=== PATIENT | female | born 1995 | race Caucasian/White ===

== ENCOUNTER 2018-07-21 17:55 | Emergency (ER) | payer BC, OTHER ==
[2018-07-21 18:14] VITALS: BP 117/67
--- NOTE | 2018-07-21 18:36 | UC ---
Shoulder Pain HPI - HPI Summary HPI Summary: Slipped yesterday at work. Fell backwards onto her butt and on her hands extended behind her. Left arm feels weak with some left hand numbness. Pain worse with use. - History of Current Complaint Chief Complaint: UCUpperExtremity Stated Complaint: BACK PAIN Time Seen by Provider: 07/21/18 18:17 Hx Obtained From: Patient ?: No - 3 months post Onset/Duration: Sudden Onset - falling yesterdaty, Lasting Days - 1, Worse Since - awakening with pain this morning. Timing: Constant Severity Initially: Mild Severity Currently: Severe Location Of Pain: Is Discrete @ - left shoulder, anterior and posterior, with neck pain and pain radiating down the left arm. Pain Intensity: 7 Character: Sharp, Aching Aggravating Factor(s): Movement Alleviating Factor(s): Rest Associated Signs And Symptoms: Positive: Weakness Related History: Occupational Injury - slipped outside at work., Dominant Hand Right - Allergies/Home Medications Allergies/Adverse Reactions: Allergies Allergy/AdvReac Type Severity Reaction Status Date / Time No Known Allergies Allergy Verified 07/21/18 18:12 Home Medications: Home Medications Acetaminophen [Tylenol] 650 mg PO ONCE 07/21/18 [History Confirmed 07/21/18] PMH/Surg Hx/FS Hx/Imm Hx Previously Healthy: Yes - Surgical History Surgical History: None - Family History Known Family History: Negative: Cardiac Disease, Diabetes - Social History Occupation: Employed Full-time Lives: With Family Alcohol Use: None Substance Use Type: None Smoking Status (MU): Never Smoked Tobacco Review of Systems All Other Systems Reviewed And Are Negative: Yes Musculoskeletal: Positive: Arthralgia - left shoulder and neck. Is Patient Immunocompromised?: No Physical Exam Triage Information Reviewed: Yes Appearance: Well-Appearing, Well-Nourished, Pain Distress - mild Vital Signs: Initial Vital Signs Temp 97.5 F 07/21/18 18:10 Pulse 83 07/21/18 18:10 Resp 14 07/21/18 18:10 BP 117/67 07/21/18 18:10 Pulse Ox 100 07/21/18 18:10 Vital Signs Reviewed: Yes Eyes: Positive: Conjunctiva Clear Neck: Positive: No Lymphadenopathy, Tenderness @ - Cervical spinous process C6 Respiratory: Positive: Lungs clear. Negative: Chest non-tender - Tender left Pectoralis major/ minor Cardiovascular Exam: Normal Musculoskeletal: Positive: Strength Intact - Bilateral UE, ROM Intact, Other: - Muscular tenderness left Rhomboid, triceps and middle trapezius Neurological Exam: Normal - DTR UE bilaterally Neurological: Positive: Other: - sensation to pinprick decreased left arm in a radicular pattern around C6 dermatome Diagnostics - Radiology No standard instances Radiology Interpretation Completed By: ED Physician Summary of Radiographic Findings: Normal c-spine and left shoulder Shoulder Course/Dx - Differential Dx/Diagnosis Differential Diagnosis/HQI/PQRI: AC Separation, Arthritis, Fracture (Closed), Sprain Provider Diagnosis: Strain of neck muscle, Left shoulder strain Discharge - Sign-Out/Discharge Documenting (check all that apply): Patient Departure All imaging exams completed and their final reports reviewed: No - Discharge Plan Condition: Stable Disposition: HOME Patient Education Materials: Cervical Strain (ED), Muscle Strain (ED) Referrals: No Primary Care Phys,NOPCP [Primary Care Provider] - Shankar Lugo MD [Medical Doctor] - 3 Days (recheck shoulder and numbness on the left arm) - Billing Disposition and Condition Condition: STABLE Disposition: Home
--- NOTE | 2018-07-22 10:13 | UC ---
- Progress Note Progress Note: Final readings of cervical spine and left shoulder x-rays reviewed. No acute fracture which agrees with provider preliminary reading. No change in plan of care. Course/Dx - Diagnoses Provider Diagnoses: Strain of neck muscle, Left shoulder strain Discharge - Sign-Out/Discharge Documenting (check all that apply): Post-Discharge Follow Up All imaging exams completed and their final reports reviewed: Yes - Discharge Plan Condition: Stable Disposition: HOME Patient Education Materials: Cervical Strain (ED), Muscle Strain (ED) Referrals: Shankar Lugo MD [Medical Doctor] - 3 Days (recheck shoulder and numbness on the left arm) No Primary Care Phys,NOPCP [Primary Care Provider] - - Billing Disposition and Condition Condition: STABLE Disposition: Home
== END 2018-07-21 19:59 | disposition home or self-care (01) ==
LOC: UCCORT 17:55
DX: S16.1XXA Strain of muscle, fascia and tendon at neck level, initial encounter (principal); S43.402A Unspecified sprain of left shoulder joint, initial encounter; W01.0XXA Fall on same level from slipping, tripping and stumbling without subsequent striking against object, initial encounter; Y92.89 Other specified places as the place of occurrence of the external cause; Y99.0 Civilian activity done for income or pay
CPT/HCPCS: 72050; 84702; 99211; G0463